=== PATIENT | female | born 1980 | race Caucasian/White ===

== ENCOUNTER 2018-01-09 16:50 | Emergency (ER) | payer SELFPAY ==
[~2018-01-09] VITALS: Ht 165.1 cm; Wt 68.0 kg
[2018-01-09 16:55] VITALS: BP_SYST 122
--- NOTE | 2018-01-09 17:10 | NUR ---
Patient to ER bed 8 to gown for evaluation. Side rails up. Report given to Shelley STEVEN.
--- NOTE | 2018-01-09 17:12 | NUR ---
Pt brought by self,A&Ox4, pt presents to ER with lower abdominal pressure and frequency with urination,also c/o chills, pt afebrile, VS WNL, respirations even and unlabored.
[2018-01-09 17:15] LABS: BILIRUBIN,URINE NEGATIVE (NEGATIVE); BLOOD, URINE 1+ (NEGATIVE); CLARITY/URINE SL CLOUDY (CLEAR); COLOR,URINE YELLOW (YELLOW); GLUCOSE,URINE NEGATIVE (NEGATIVE); KETONES,URINE NEGATIVE (NEGATIVE); LEUKOCYTE ESTERASE ,URINE 3+ (NEGATIVE); NITRITE, URINE NEGATIVE (NEGATIVE); PROTEIN URINE TRACE (NEGATIVE); UROBILINOGEN,URINE 0.2 (0.2-1.0)
--- NOTE | 2018-01-09 17:20 | NUR ---
José Miguel RUBI at beside examining patient
--- NOTE | 2018-01-09 17:20 | NUR ---
Nyla camara in [facility] - 01/09/18 at [email or web address] Nobles at bedside examining patient
[2018-01-09 17:26] LABS: BACTERIA,URINE FEW /HPF (None Seen); WBC,URINE >100 /HPF (0-3)
[2018-01-09] MEDS ORDERED: KETOROLAC TROMETHAMINE 60 MG/2 ML VIAL IM ONE (17:45)
[2018-01-09] MEDS ORDERED: PHENAZOPYRIDINE HCL 100 MG TABLET PO ONE (17:45)
[2018-01-09] MEDS ORDERED: cefTRIAXone 1 GM VIAL IM ONE (17:45)
[2018-01-09] MEDS ORDERED: LIDOCAINE 1%, 20 ML MDV 20 ML ONE (17:50)
--- NOTE | 2018-01-09 18:00 | NUR ---
Pt medicated as ordered, well tolerated
[2018-01-09 18:26] VITALS: BP_SYST 122
--- NOTE | 2018-01-09 18:26 | NUR ---
Patient given written and verbal discharge instructions and verbalizes understanding. ER MD discussed with patient the results and treatment provided. Patient in stable condition. ID arm band removed. Rx of Macrobid,Pyridium, Motrin given. Patient educated on pain management and to follow up with PMD. Pain Scale 3/10 tolerable for patient. Opportunity for questions provided and answered. Medication side effect fact sheet provided.
== END 2018-01-09 18:26 | disposition home or self-care (01) ==
LOC: SED 16:50
DX: N39.0 Urinary tract infection, site not specified (principal); M54.9 Dorsalgia, unspecified; R68.83 Chills (without fever); R03.0 Elevated blood-pressure reading, without diagnosis of hypertension
CPT/HCPCS: 81000; 81025; 96372; 99284; J0696; J1885; J2001

== ENCOUNTER 2018-01-11 16:43 | Inpatient (IN) | payer SELFPAY ==
[~2018-01-11] VITALS: Ht 165.1 cm; Wt 65.8 kg
[2018-01-11 16:50] VITALS: BP_SYST 104
[2018-01-11] MEDS ORDERED: NACL 0.9% 1,000 ML IV ONE ×2 (17:14→18:45)
[2018-01-11] MEDS ORDERED: ONDANSETRON HCL 4 MG/2 ML VIAL IVP ONE (17:15)
[2018-01-11] MEDS ORDERED: LEVOFLOXACIN 500 MG/D5W 100 ML IV ONE (17:15)
[2018-01-11 17:25] LABS: BILIRUBIN,URINE NEGATIVE (NEGATIVE); BLOOD, URINE 1+ (NEGATIVE); CLARITY/URINE CLEAR (CLEAR); COLOR,URINE YELLOW (YELLOW); GLUCOSE,URINE NEGATIVE (NEGATIVE); KETONES,URINE 3+ (NEGATIVE); LEUKOCYTE ESTERASE ,URINE TRACE (NEGATIVE); NITRITE, URINE POSITIVE (NEGATIVE); PROTEIN URINE 2+ (NEGATIVE)
[2018-01-11] MEDS ORDERED: DIPHENHYDRAMINE INJ 50 MG/ML VIAL IVP ONE (17:30)
[2018-01-11] MEDS ORDERED: MORPHINE 4 MG/ML INJ. SYRINGE IVP ONE ×2 (17:30→19:15)
[2018-01-11 17:46] LABS: CREATININE 0.83 mg/dL (0.55-1.30); HEMATOCRIT 42.3 % (36-48); HEMOGLOBIN 14.2 g/dL (12.0-16.0); MEAN CORPUSCULAR HEMOGLOBIN 31 pg (27-31); MEAN CORPUSCULAR HGB CONC 34 % (32-36); MEAN CORPUSCULAR VOLUME 93 fL (79.0-98.0); PLATELET COUNT (AUTO) 279 K/uL (130-430); POTASSIUM 3.2 mmol/L (3.5-5.1); RED BLOOD CELL COUNT(AUTO) 4.54 MIL/uL (4.2-6.2); WHITE BLOOD COUNT (AUTO) 19.1 K/uL (4.8-10.8)
[2018-01-11 17:47] LABS: TOTAL BILIRUBIN 0.5 mg/dL (0.0-1.0)
[2018-01-11 17:58] LABS: BACTERIA,URINE MODERATE /HPF (None Seen); FINE GRANULAR CASTS,URINE 0-10 /LPF (None Seen); MUCUS,URINE None Seen /LPF (None Seen); YEAST,URINE None Seen /HPF (None Seen)
[2018-01-11 18:13] LABS: BAND % (MANUAL) 4 % (0-6); BASOPHILS % (MANUAL) 0 % (0-2); EOSINOPHILS % (MANUAL) 0 % (0-7); LYMPHOCYTES % (MANUAL) 6 % (20-46); MONOCYTES % (MANUAL) 4 % (0-11)
[2018-01-11] MEDS ORDERED: ACETAMINOPHEN 500 MG TABLET PO ONE (18:45)
[2018-01-11] MEDS ORDERED: PHEN-726 PO (19:15)
[2018-01-11] MEDS ORDERED: KETOROLAC TROMETHAMINE 30 MG VIAL IVP ONE (19:15)
[2018-01-11] MEDS ORDERED: IBUP-1968 PO (19:15)
[2018-01-11] MEDS ORDERED: NITR-85 PO (19:15)
[2018-01-11] MEDS ORDERED: METOCLOPRAMIDE HCL 10 MG/2 ML VIAL IVP PRN (19:45)
[2018-01-11 20:11] VITALS: BP_SYST 105
[2018-01-11] MEDS ORDERED: TEMAZEPAM 15 MG CAPSULE PO PRN (21:00)
[2018-01-11] MEDS ORDERED: ACETAMINOPHEN 325 MG TABLET PO PRN (21:30)
[2018-01-11] MEDS: NACL 0.9% 1,000 ML IV SCH (21:41)
[2018-01-11 23:43] VITALS: BP_SYST 92
[2018-01-12 03:57] VITALS: BP_SYST 102
[2018-01-12] MEDS: MORPHINE 2 MG/ML INJ. SYRINGE IVP PRN (05:05)
[2018-01-12] MEDS: NACL 0.9% 1,000 ML IV SCH ×2 (06:34→16:08)
[2018-01-12 08:12] VITALS: BP_SYST 102
[2018-01-12] MEDS: MORPHINE 4 MG/ML INJ. SYRINGE IVP PRN ×4 (09:30→21:15)
[2018-01-12] MEDS: PIPERACILLIN/TAZO 3.375/DEX-IS 50 ML IV SCH ×3 (10:22→21:19)
[2018-01-12 12:40] VITALS: BP_SYST 104
[2018-01-12] MEDS: ONDANSETRON HCL 4 MG/2 ML VIAL IVP PRN (16:13)
[2018-01-12 16:50] VITALS: BP_SYST 109
[2018-01-12 20:03] VITALS: BP_SYST 113
[2018-01-13] VITALS: BP_SYST 98
[2018-01-13] MEDS: MORPHINE 4 MG/ML INJ. SYRINGE IVP PRN ×6 (01:43→22:40)
[2018-01-13] MEDS: NACL 0.9% 1,000 ML IV SCH ×3 (03:54→22:43)
[2018-01-13] MEDS: PIPERACILLIN/TAZO 3.375/DEX-IS 50 ML IV SCH ×4 (03:55→22:24)
[2018-01-13 06:23] VITALS: BP_SYST 106
[2018-01-13] MEDS: ONDANSETRON HCL 4 MG/2 ML VIAL IVP PRN ×3 (06:41→20:18)
[2018-01-13 08:00] VITALS: BP_SYST 94
[2018-01-13 09:43] LABS: BASOPHILS # (AUTO) 0.1 K/uL (0.0-0.2); BASOPHILS % (AUTO) 0.6 % (0.0-2.0); EOSINOPHILS # (AUTO) 0.1 K/uL (0.0-0.4); EOSINOPHILS % (AUTO) 0.8 % (0.0-4.0); HEMATOCRIT 35.9 % (36-48); HEMOGLOBIN 11.9 g/dL (12.0-16.0); LYMPHOCYTES # (AUTO) 1.5 K/uL (1.0-5.5); LYMPHOCYTES % (AUTO) 17.4 % (20.5-51.5); MEAN CORPUSCULAR HEMOGLOBIN 31 pg (27-31); MEAN CORPUSCULAR HGB CONC 33 % (32-36); MEAN CORPUSCULAR VOLUME 92 fL (79.0-98.0); MONOCYTES % (AUTO) 11.3 % (1.7-9.3); NEUTROPHILS # (AUTO) 6.2 K/uL (1.8-7.7); NEUTROPHILS % (AUTO) 69.9 % (40.0-70.0); PLATELET COUNT (AUTO) 332 K/uL (130-430); RED BLOOD CELL COUNT(AUTO) 3.89 MIL/uL (4.2-6.2); RED CELL DISTRIBUTION WIDTH 11.7 % (9.0-15.0); WHITE BLOOD COUNT (AUTO) 8.9 K/uL (4.8-10.8)
[2018-01-13 09:55] LABS: CALCIUM 8.5 mg/dL (8.4-11.0); CREATININE 0.78 mg/dL (0.55-1.30)
[2018-01-13 10:01] LABS: ALBUMIN 2.2 g/dL (3.4-4.8); TOTAL BILIRUBIN 0.4 mg/dL (0.0-1.0)
[2018-01-13 12:45] VITALS: BP_SYST 102
[2018-01-13 16:00] VITALS: BP_SYST 107; BP_SYST 110
[2018-01-13] MEDS ORDERED: POTASSIUM CHLORIDE 20 MEQ TAB.PRT.SR PO ONE (19:00)
[2018-01-13 20:00] VITALS: BP_SYST 111
[2018-01-14 00:21] VITALS: BP_SYST 115
[2018-01-14] MEDS: PIPERACILLIN/TAZO 3.375/DEX-IS 50 ML IV SCH ×2 (03:22→08:53)
[2018-01-14] MEDS: MORPHINE 4 MG/ML INJ. SYRINGE IVP PRN ×5 (03:25→21:49)
[2018-01-14 08:00] VITALS: BP_SYST 119
[2018-01-14] MEDS: ONDANSETRON HCL 4 MG/2 ML VIAL IVP PRN ×2 (08:47→17:30)
[2018-01-14 10:20] LABS: BASOPHILS % (AUTO) 0.6 % (0.0-2.0); EOSINOPHILS # (AUTO) 0.1 K/uL (0.0-0.4); EOSINOPHILS % (AUTO) 1.8 % (0.0-4.0); HEMATOCRIT 38.5 % (36-48); HEMOGLOBIN 12.3 g/dL (12.0-16.0); LYMPHOCYTES # (AUTO) 1.8 K/uL (1.0-5.5); LYMPHOCYTES % (AUTO) 24.2 % (20.5-51.5); MEAN CORPUSCULAR HEMOGLOBIN 30 pg (27-31); MEAN CORPUSCULAR HGB CONC 32 % (32-36); MEAN CORPUSCULAR VOLUME 94 fL (79.0-98.0); MONOCYTES # (AUTO) 0.8 K/uL (0.0-1.0); MONOCYTES % (AUTO) 11.6 % (1.7-9.3); NEUTROPHILS # (AUTO) 4.6 K/uL (1.8-7.7); NEUTROPHILS % (AUTO) 61.8 % (40.0-70.0); PLATELET COUNT (AUTO) 395 K/uL (130-430); RED BLOOD CELL COUNT(AUTO) 4.12 MIL/uL (4.2-6.2); RED CELL DISTRIBUTION WIDTH 11.8 % (9.0-15.0); WHITE BLOOD COUNT (AUTO) 7.3 K/uL (4.8-10.8)
[2018-01-14 10:27] LABS: ALBUMIN 2.4 g/dL (3.4-4.8); CALCIUM 9.1 mg/dL (8.4-11.0); CREATININE 0.61 mg/dL (0.55-1.30); POTASSIUM 3.6 mmol/L (3.5-5.1); TOTAL BILIRUBIN 0.3 mg/dL (0.0-1.0)
[2018-01-14] MEDS ORDERED: GENTAMICIN 120 mg/100 mL NS 100 ML IV ONE (10:30)
[2018-01-14 12:13] VITALS: BP_SYST 112
[2018-01-14] MEDS: NACL 0.9% 1,000 ML IV SCH ×2 (14:47→19:30)
[2018-01-14 16:15] VITALS: BP_SYST 109
[2018-01-14 19:50] VITALS: BP_SYST 119
[2018-01-14 23:20] VITALS: BP_SYST 108
[2018-01-15] MEDS: GENTAMICIN 100 MG/ ISO-OSM 50 ML PREMIX IV SCH ×2 (01:19→12:25)
[2018-01-15] MEDS: ONDANSETRON HCL 4 MG/2 ML VIAL IVP PRN ×3 (03:52→20:29)
[2018-01-15] MEDS: NACL 0.9% 1,000 ML IV SCH ×2 (03:53→12:24)
[2018-01-15] MEDS: MORPHINE 4 MG/ML INJ. SYRINGE IVP PRN ×5 (03:53→20:32)
[2018-01-15 08:02] VITALS: BP_SYST 120
[2018-01-15 12:00] VITALS: BP_SYST 116
[2018-01-15] MEDS ORDERED: BISACODYL 5 MG TABLET.DR (DULCOLAX) PO PRN (12:30)
[2018-01-15] MEDS ORDERED: BISACODYL 5 MG TABLET.DR (DULCOLAX) PO ONE (12:30)
[2018-01-15] MEDS ORDERED: DOCUSATE SODIUM 250 MG CAPSULE PO ONE (12:45)
[2018-01-15 14:24] LABS: CALCIUM 9.8 mg/dL (8.4-11.0); CREATININE 0.73 mg/dL (0.55-1.30); POTASSIUM 3.7 mmol/L (3.5-5.1)
[2018-01-15 15:11] LABS: BASOPHILS % (AUTO) 0.5 % (0.0-2.0); EOSINOPHILS # (AUTO) 0.2 K/uL (0.0-0.4); EOSINOPHILS % (AUTO) 2.8 % (0.0-4.0); HEMATOCRIT 40.6 % (36-48); HEMOGLOBIN 13.3 g/dL (12.0-16.0); LYMPHOCYTES % (AUTO) 32.4 % (20.5-51.5); MEAN CORPUSCULAR HEMOGLOBIN 30 pg (27-31); MEAN CORPUSCULAR HGB CONC 33 % (32-36); MEAN CORPUSCULAR VOLUME 93 fL (79.0-98.0); MONOCYTES # (AUTO) 0.7 K/uL (0.0-1.0); MONOCYTES % (AUTO) 10.9 % (1.7-9.3); NEUTROPHILS # (AUTO) 3.2 K/uL (1.8-7.7); NEUTROPHILS % (AUTO) 53.4 % (40.0-70.0); PLATELET COUNT (AUTO) 490 K/uL (130-430); RED BLOOD CELL COUNT(AUTO) 4.39 MIL/uL (4.2-6.2); RED CELL DISTRIBUTION WIDTH 11.9 % (9.0-15.0); WHITE BLOOD COUNT (AUTO) 6.1 K/uL (4.8-10.8)
[2018-01-15 16:00] VITALS: BP_SYST 111
[2018-01-15 20:00] VITALS: BP_SYST 112
[2018-01-15] MEDS: DOCUSATE SODIUM 250 MG CAPSULE PO SCH (20:32)
[2018-01-15 23:20] VITALS: BP_SYST 96
[2018-01-16] MEDS: GENTAMICIN 100 MG/ ISO-OSM 50 ML PREMIX IV SCH ×2 (00:23→12:33)
[2018-01-16] MEDS: NACL 0.9% 1,000 ML IV SCH ×3 (00:23→16:51)
[2018-01-16] MEDS: MORPHINE 4 MG/ML INJ. SYRINGE IVP PRN ×6 (00:24→20:50)
[2018-01-16] MEDS: ONDANSETRON HCL 4 MG/2 ML VIAL IVP PRN ×3 (04:34→16:50)
[2018-01-16 08:00] VITALS: BP_SYST 115
[2018-01-16 08:24] LABS: CALCIUM 9.6 mg/dL (8.4-11.0); CREATININE 0.68 mg/dL (0.55-1.30); POTASSIUM 3.8 mmol/L (3.5-5.1)
[2018-01-16] MEDS: DOCUSATE SODIUM 250 MG CAPSULE PO SCH ×2 (08:26→20:53)
[2018-01-16 08:30] LABS: ALBUMIN 2.7 g/dL (3.4-4.8); TOTAL BILIRUBIN 0.2 mg/dL (0.0-1.0)
[2018-01-16 11:11] LABS: BILIRUBIN,URINE NEGATIVE (NEGATIVE); BLOOD, URINE NEGATIVE (NEGATIVE); CLARITY/URINE CLEAR (CLEAR); COLOR,URINE YELLOW (YELLOW); GLUCOSE,URINE NEGATIVE (NEGATIVE); KETONES,URINE NEGATIVE (NEGATIVE); LEUKOCYTE ESTERASE ,URINE NEGATIVE (NEGATIVE); NITRITE, URINE NEGATIVE (NEGATIVE); PROTEIN URINE NEGATIVE (NEGATIVE); UROBILINOGEN,URINE 0.2 (0.2-1.0)
[2018-01-16 12:00] VITALS: BP_SYST 117
[2018-01-16] MEDS ORDERED: MINERAL OIL 30 ML UDC PO ONE (15:15)
[2018-01-16] MEDS ORDERED: LACTULOSE 20 GM/30 ML UDC PO ONE (15:30)
[2018-01-16 16:00] VITALS: BP_SYST 121
[2018-01-16 20:00] VITALS: BP_SYST 119
[2018-01-16] MEDS: LACTULOSE 20 GM/30 ML UDC PO SCH (20:50)
[2018-01-16 20:58] LABS: BILIRUBIN,URINE NEGATIVE (NEGATIVE); BLOOD, URINE NEGATIVE (NEGATIVE); CLARITY/URINE CLEAR (CLEAR); COLOR,URINE YELLOW (YELLOW); GLUCOSE,URINE NEGATIVE (NEGATIVE); KETONES,URINE NEGATIVE (NEGATIVE); LEUKOCYTE ESTERASE ,URINE NEGATIVE (NEGATIVE); NITRITE, URINE NEGATIVE (NEGATIVE); PROTEIN URINE NEGATIVE (NEGATIVE); UROBILINOGEN,URINE 0.2 (0.2-1.0)
[2018-01-16 21:34] LABS: BARBITURATE, URINE NEGATIVE (NEG <=200); BENZODIAZEPINE, URINE NEGATIVE (NEG <=150); CANNABINOID, URINE NEGATIVE (NEG <=50); COCAINE, URINE NEGATIVE (NEG <=150); METHAMPHETAMINES SCREEN,URINE NEGATIVE (NEG <=500); OPIATE, URINE NEGATIVE (NEG <=100); PHENCYCLIDINE SCREEN,URINE NEGATIVE (NEG <=25); UR TRICYCLIC ANTIDEPRESSANTS NEGATIVE (NEG <=300); URINE AMPHETAMINE NEGATIVE (NEG <=500); URINE METHADONE NEGATIVE (NEG <=200); URINE OXYCODONE SCREEN NEGATIVE (NEG <=100); URINE PROPOXYPHENE SCREEN NEGATIVE (NEG <=300)
[2018-01-17] MEDS: GENTAMICIN 100 MG/ ISO-OSM 50 ML PREMIX IV SCH ×2 (00:38→12:55)
[2018-01-17 01:22] VITALS: BP_SYST 103
[2018-01-17] MEDS: MORPHINE 4 MG/ML INJ. SYRINGE IVP PRN ×4 (01:59→20:45)
[2018-01-17] MEDS: NACL 0.9% 1,000 ML IV SCH ×2 (04:08→12:57)
[2018-01-17] MEDS: ONDANSETRON HCL 4 MG/2 ML VIAL IVP PRN ×2 (06:20→15:52)
[2018-01-17 08:07] VITALS: BP_SYST 104
[2018-01-17] MEDS: LACTULOSE 20 GM/30 ML UDC PO SCH ×2 (08:59→20:45)
[2018-01-17] MEDS: DOCUSATE SODIUM 250 MG CAPSULE PO SCH ×2 (09:00→20:45)
[2018-01-17] MEDS: MORPHINE 2 MG/ML INJ. SYRINGE IVP PRN (11:22)
[2018-01-17 11:44] VITALS: BP_SYST 102
[2018-01-17 15:08] VITALS: BP_SYST 106
[2018-01-17 20:00] VITALS: BP_SYST 109
[2018-01-18] VITALS (7 sets, daily range): BP systolic 91–108
[2018-01-18] MEDS: GENTAMICIN 100 MG/ ISO-OSM 50 ML PREMIX IV SCH ×2 (00:55→12:26)
[2018-01-18] MEDS: NACL 0.9% 1,000 ML IV SCH ×2 (04:07→12:27)
[2018-01-18] MEDS: MORPHINE 4 MG/ML INJ. SYRINGE IVP PRN ×3 (04:08→12:26)
[2018-01-18] MEDS: DOCUSATE SODIUM 250 MG CAPSULE PO SCH (08:26)
[2018-01-18] MEDS: ONDANSETRON HCL 4 MG/2 ML VIAL IVP PRN (08:27)
[2018-01-18] MEDS: LACTULOSE 20 GM/30 ML UDC PO SCH (08:27)
[2018-01-18 09:59] LABS: CALCIUM 9.5 mg/dL (8.4-11.0); CREATININE 0.8 mg/dL (0.55-1.30); POTASSIUM 3.8 mmol/L (3.5-5.1)
[2018-01-18] MEDS ORDERED: IBUPROFEN 400 MG TABLET PO ONE (16:15)
[2018-01-18] MEDS ORDERED: LEVO250T2 PO (16:32)
[2018-01-18] MEDS ORDERED: IBUPROFEN 400 MG TABLET PO SCH (21:00)
== END 2018-01-18 17:00 | disposition home or self-care (01) | DRG 871 ==
LOC: SED 16:43 → SMU 19:45
PROVIDERS: ADMIT Internal Medicine Hospice and Palliative Medicine; ATTEND Internal Medicine Hospice and Palliative Medicine
DX: A41.9 Sepsis, unspecified organism (principal); E43 Unspecified severe protein-calorie malnutrition; N10 Acute pyelonephritis; K59.00 Constipation, unspecified; D25.9 Leiomyoma of uterus, unspecified; E87.6 Hypokalemia; Z79.899 Other long term (current) drug therapy; Z68.24 Body mass index [BMI] 24.0-24.9, adult
CPT/HCPCS: 36415; 74018; 76856-TC; 80048; 80053; 80170-TC; 80307; 81000-TC; 81003; 83605; 83690-TC; 84703; 85007; 85025; 85027; 87040-TC; 87086; 90656; 96365; 96375; 99285; J0696; J1200; J1580; J1885; J1956; J2270; J2405; J2543; J2765; J7030; J7060